=== PATIENT | male | born 1990 | race Asian ===

== ENCOUNTER 2020-06-27 22:48 | Emergency (ER) | payer OTHER ==
[~2020-06-27] VITALS: Ht 180.3 cm; Wt 88.5 kg
[2020-06-28] LABS: PLATELET COUNT 273 K/uL (142-355)
[2020-06-28 00:01] LABS: PARTIAL THROMBOPLASTIN TIME 22.5 SECONDS (24.5-33.6)
[2020-06-28 01:40] VITALS: BP 146/86; TEMP 98.6
== END 2020-06-28 01:40 | disposition short-term general hospital (02) ==
LOC: ED 22:48
PROVIDERS: Emergency Medicine Emergency Medical Services
DX: S02.85XA Fracture of orbit, unspecified, initial encounter for closed fracture (principal); S02.31XA Fracture of orbital floor, right side, initial encounter for closed fracture; S02.40CA Maxillary fracture, right side, initial encounter for closed fracture; H11.31 Conjunctival hemorrhage, right eye; Y04.2XXA Assault by strike against or bumped into by another person, initial encounter; Y92.89 Other specified places as the place of occurrence of the external cause
CPT/HCPCS: 36415; 80053; 85027; 85610; 85730; 96360; 96365; 96375; 99285; J0696; J2270